=== PATIENT | female | born 2000 | race Caucasian/White ===

== ENCOUNTER → 2018-07-08 | Outpatient (REF) ==
--- NOTE | 2018-07-08 12:36 | Diagnostic Imaging Report ---
EXAMINATION: Right foot at 12:09 p.m. INDICATION: Injury, foot pain. FINDINGS: Three views were obtained. There are no prior studies available for comparison. There is no fracture, dislocation, or acute bony abnormality evident. The Lisfranc joint is well maintained. The soft tissues are unremarkable. IMPRESSION: There is no evidence for an acute bony abnormality. Dictated by: Dictated on workstation # [id number]
== END | disposition home or self-care (01) ==
LOC: RAD 11:34 → MERGE 11:34
PROVIDERS: ATTEND Nurse Practitioner Family
CPT/HCPCS: 73630

== ENCOUNTER 2018-07-16 12:59 | Emergency (ER) | payer SELFPAY ==
[~2018-07-16] VITALS: Ht 152.4 cm; Wt 52.2 kg
[2018-07-16] MEDS ORDERED: NS IV 1000 ML 1,000 ML IV ONE (13:18)
[2018-07-16 13:21] LABS: BILIRUBIN,URINE NEGATIVE (NEGATIVE); CLARITY,URINE CLEAR; COLOR,URINE YELLOW; GLUCOSE, URINE (UA) NEGATIVE (NEGATIVE); KETONES,URINE NEGATIVE (NEGATIVE); LEUKOCYTE ESTERASE ,URINE 1+ (NEGATIVE); NITRITE,URINE NEGATIVE (NEGATIVE); PH,URINE 7 (5-9); PROTEIN,URINE 2+ (NEGATIVE); UROBILINOGEN,URINE 1 MG/DL (NORMAL)
[2018-07-16 13:31] LABS: BASOPHILS % (AUTO) 0 % (0-10); EOSINOPHILS # (AUTO) 0.1 10^3/uL (0.0-0.3); EOSINOPHILS % (AUTO) 1 % (0-10); HEMATOCRIT 37 % (35-52); HEMOGLOBIN 13.3 G/DL (11.5-16.0); LYMPHOCYTES # (AUTO) 2.5 X 10^3 (1.0-4.0); LYMPHOCYTES % (AUTO) 39 % (12-44); MEAN CORPUSCULAR HEMOGLOBIN 30 PG (25-34); MEAN CORPUSCULAR HGB CONC 36 G/DL (32-36); MEAN CORPUSCULAR VOLUME 83 FL (80-99); MEAN PLATELET VOLUME 9.4 FL (7.4-10.4); MONOCYTES # (AUTO) 0.5 X 10^3 (0.0-1.0); MONOCYTES % (AUTO) 8 % (0-12); NEUTROPHILS # (AUTO) 3.4 X 10^3 (1.8-7.8); NEUTROPHILS % (AUTO) 53 % (42-75); PLATELET COUNT 247 10^3/uL (130-400); RED CELL DISTRIBUTION WIDTH 12.2 % (10.0-14.5); WHITE BLOOD COUNT 6.5 10^3/uL (4.3-11.0)
[2018-07-16 13:38] LABS: AMPHETAMINE SCREEN, URINE NEGATIVE (NEGATIVE); BARBITURATE SCREEN URINE NEGATIVE (NEGATIVE); BENZODIAZEPINES SCREEN URINE NEGATIVE (NEGATIVE); CANNABINOID SCREEN, URINE NEGATIVE (NEGATIVE); COCAINE SCREEN URINE NEGATIVE (NEGATIVE); METHAMPHETAMINE SCREEN URINE S NEGATIVE (NEGATIVE); OPIATE SCREEN URINE NEGATIVE (NEGATIVE); TRICYCLIC ANTIDEPRESSANTS SCRE NEGATIVE (NEGATIVE)
[2018-07-16 13:39] LABS: METHADONE STAT NEGATIVE (NEGATIVE); OXYCODONE STAT NEGATIVE (NEGATIVE); PROPOXYPHENE STAT NEGATIVE (NEGATIVE)
[2018-07-16 13:42] LABS: BACTERIA,URINE MODERATE /HPF; WBC,URINE RARE /HPF
[2018-07-16 13:49] LABS: ALANINE AMINOTRANSFERASE 11 U/L (0-55); ALBUMIN 4.5 GM/DL (3.2-4.5); ALKALINE PHOSPHATASE 59 U/L (40-136); BILIRUBIN,TOTAL 0.2 MG/DL (0.1-1.0); BUN/CREATININE RATIO 14; CALCIUM 9.4 MG/DL (8.5-10.1); CARBON DIOXIDE 24 MMOL/L (21-32); CHLORIDE 106 MMOL/L (98-107); GFR ESTIMATED > 60; GLUCOSE 132 MG/DL (70-105); POTASSIUM 3.6 MMOL/L (3.6-5.0); SALICYLATE < 5.0 MG/DL (5.0-20.0); SODIUM 138 MMOL/L (135-145); TOTAL PROTEIN 7.4 GM/DL (6.4-8.2)
--- NOTE | 2018-07-16 13:57 | ED General ---
General Chief Complaint: General Problems/Pain Stated Complaint: WEAKNESS Nursing Triage Note: PT STATES GENERAL WEAKNESS AND UPPER ABD PAIN FOR ABOUT A MONTH. STATES SOMETHING LIKE THIS HAPPENED TO HER IN THE PAST BUT THEY WERE UNABLE TO FIND OUT WHAT WAS WRONG. Source of Information: Patient Exam Limitations: No Limitations History of Present Illness Date Seen by Provider: Jul 16, 2018 Time Seen by Provider: 13:20 Initial Comments Here with report of generalized weakness and intermittent for abdominal pain for about a month. She has had some nausea. Denies vomiting. Denies dysuria. Last menstrual period was 06/13. Does not believe that she is . It is a possibility though. Describes more of a weakness and pain and/or nausea. States that she tries to eat to help her head does not seem to help make it go away. States that she sometimes feels like she is given a pass out and that's what she relates to childhood. Timing/Duration: 1 Week, Changing Over Time, Intermittent Severity: Mild, Moderate Associated Systoms: No Chest Pain, No Cough, No Fever/Chills, No Shortness of Air; Weakness Allergies and Home Medications Allergies Coded Allergies: No Known Drug Allergies (Unverified , 07/16/18) Patient Home Medication List Home Medication List Reviewed: Yes Review of Systems Review of Systems Constitutional: see HPI; No chills, No fever EENTM: no symptoms reported Respiratory: no symptoms reported Cardiovascular: No chest pain, No palpitations Gastrointestinal: abdominal pain, nausea; No vomiting Genitourinary: No dysuria : Yes LMP: Jun 13, 2018 Musculoskeletal: no symptoms reported Skin: no symptoms reported Psychiatric/Neurological: No Symptoms Reported; Denies Headache All Other Systems Reviewed Negative Unless Noted: Yes Past Cruxrdb-Bexlcz-Ygxpxd Hx Past Med/Social Hx: Reviewed Nursing Past Med/Soc Hx Patient Social History Alcohol Use: Rarely Uses Recreational Drug Use: No Smoking Status: Current Everyday Smoker Type Used: Cigarettes Recent Foreign Travel: No Contact w/Someone Who Travel: No Recent Infectious Disease Expo: No Recent Hopitalizations: No Seasonal Allergies Seasonal Allergies: No Past Medical History Surgeries: Yes (NASAL) Respiratory: No Cardiac: No Neurological: No Genitourinary: No Gastrointestinal: No Musculoskeletal: No Endocrine: No HEENT: No Cancer: No Psychosocial: No Integumentary: No Family Medical History Reviewed Nursing Family Hx Physical Exam Vital Signs Vital Signs - First Documented 07/16/18 13:12 Temp 97.8 Pulse 67 Resp 18 B/P (MAP) 114/72 O2 Delivery Room Air Capillary Refill : Height, Weight, BMI Height: 5'0" Weight: 115lbs. oz. 52.090422gh; 22.46 BMI Method:Stated General Appearance: No Apparent Distress, WD/WN HEENT: PERRL/EOMI, Pharynx Normal Neck: Non Tender, Supple Respiratory: Lungs Clear, Normal Breath Sounds Cardiovascular: Regular Rate, Rhythm, No Murmur Gastrointestinal: Non Tender, Soft Back: Normal Inspection, No CVA Tenderness, No Vertebral Tenderness Extremity: Normal Range of Motion, Non Tender Neurologic/Psychiatric: Alert, Oriented x3 Skin: Normal Color, Warm/Dry Progress/Results/Core Measures Suspected Sepsis SIRS Temperature:97.8 Pulse: Respiratory Rate: Laboratory Tests 07/16/18 13:26: White Blood Count 6.5 Blood Pressure / Mean: Laboratory Tests 07/16/18 13:26: Creatinine 0.80, Platelet Count 247, Total Bilirubin 0.2 Results/Orders Lab Results Laboratory Tests Test 07/16/18 13:10 07/16/18 13:13 07/16/18 13:26 Range/Units Urine Color YELLOW Urine Clarity CLEAR Urine pH 7 5-9 Urine Specific [place] 1.015 L 1.016-1.022 Urine Protein 2+ H NEGATIVE Urine Glucose (UA) NEGATIVE NEGATIVE Urine Ketones NEGATIVE NEGATIVE Urine Nitrite NEGATIVE NEGATIVE Urine Bilirubin NEGATIVE NEGATIVE Urine Urobilinogen 1 NORMAL MG/DL Urine Leukocyte Esterase 1+ H NEGATIVE Urine RBC (Auto) NEGATIVE NEGATIVE Urine RBC NONE /HPF Urine WBC RARE /HPF Urine Squamous Epithelial Cells 5-10 /HPF Urine Crystals NONE /LPF Urine Bacteria MODERATE H /HPF Urine Casts NONE /LPF Urine Mucus NEGATIVE /LPF Urine Culture Indicated YES Urine Opiates Screen NEGATIVE NEGATIVE Urine Oxycodone Screen NEGATIVE NEGATIVE Urine Methadone Screen NEGATIVE NEGATIVE Urine Propoxyphene Screen NEGATIVE NEGATIVE Urine Barbiturates Screen NEGATIVE NEGATIVE Ur Tricyclic Antidepressants Screen NEGATIVE NEGATIVE Urine Phencyclidine Screen NEGATIVE NEGATIVE Urine Amphetamines Screen NEGATIVE NEGATIVE Urine Methamphetamines Screen NEGATIVE NEGATIVE Urine Benzodiazepines Screen NEGATIVE NEGATIVE Urine Cocaine Screen NEGATIVE NEGATIVE Urine Cannabinoids Screen NEGATIVE NEGATIVE White Blood Count 6.5 4.3-11.0 10^3/uL Red Blood Count 4.40 4.35-5.85 10^6/uL Hemoglobin 13.3 11.5-16.0 G/DL Hematocrit 37 35-52 % Mean Corpuscular Volume 83 80-99 FL Mean Corpuscular Hemoglobin 30 25-34 PG Mean Corpuscular Hemoglobin Concent 36 32-36 G/DL Red Cell Distribution Width 12.2 10.0-14.5 % Platelet Count 247 130-400 10^3/uL Mean Platelet Volume 9.4 7.4-10.4 FL Neutrophils (%) (Auto) 53 42-75 % Lymphocytes (%) (Auto) 39 12-44 % Monocytes (%) (Auto) 8 0-12 % Eosinophils (%) (Auto) 1 0-10 % Basophils (%) (Auto) 0 0-10 % Neutrophils # (Auto) 3.4 1.8-7.8 X 10^3 Lymphocytes # (Auto) 2.5 1.0-4.0 X 10^3 Monocytes # (Auto) 0.5 0.0-1.0 X 10^3 Eosinophils # (Auto) 0.1 0.0-0.3 10^3/uL Basophils # (Auto) 0.0 0.0-0.1 10^3/uL Sodium Level 138 135-145 MMOL/L Potassium Level 3.6 3.6-5.0 MMOL/L Chloride Level 106 98-107 MMOL/L Carbon Dioxide Level 24 21-32 MMOL/L Anion Gap 8 5-14 MMOL/L Blood Urea Nitrogen 11 7-18 MG/DL Creatinine 0.80 0.60-1.30 MG/DL Estimat Glomerular Filtration Rate > 60 BUN/Creatinine Ratio 14 Glucose Level 132 H 70-105 MG/DL Calcium Level 9.4 8.5-10.1 MG/DL Corrected Calcium 9.0 8.5-10.1 MG/DL Total Bilirubin 0.2 0.1-1.0 MG/DL Aspartate Amino Transf (AST/SGOT) 17 5-34 U/L Alanine Aminotransferase (ALT/SGPT) 11 0-55 U/L Alkaline Phosphatase 59 40-136 U/L Total Protein 7.4 6.4-8.2 GM/DL Albumin 4.5 3.2-4.5 GM/DL Thyroid Stimulating Hormone (TSH) 0.96 0.35-4.94 UIU/ML Human Chorionic Gonadotropin, Quant 58 H <5 MIU/ML Serum Test, Qualitative POSITIVE NEGATIVE Salicylates Level < 5.0 L 5.0-20.0 MG/DL Acetaminophen Level < 10 L 10-30 UG/ML Serum Alcohol < 10 <10 MG/DL My Orders Orders - NAINA WOLF MD Ed Iv/Invasive Line Start (07/16/18 13:18) Ns Iv 1000 Ml (Sodium Chloride 0.9%) (07/16/18 13:18) Acetaminophen (07/16/18 13:19) Salicylate (07/16/18 13:19) Thyroid Stimulating Hormone (07/16/18 13:19) Medications Given in ED Current Medications Medications Dose Ordered Sig/Abhishek Route Start Time Stop Time Status Last Admin Dose Admin Sodium Chloride 1,000 ml @ 0 mls/hr Q0M ONCE IV 07/16/18 13:18 07/16/18 13:20 DC 07/16/18 13:36 1,000 MLS/HR Vital Signs/I&O 07/16/18 13:12 Temp 97.8 Pulse 67 Resp 18 B/P (MAP) 114/72 O2 Delivery Room Air Capillary Refill : Progress Note : Progress Note Seen and evaluated. IV, labs, UA, normal saline 1 L bolus. UCG is positive. We will check Quant level. I did inform patient of the positive test. Monitor patient. 1505: Patient definitely by hCG quantitative level although early. Feels better currently. Discharged home with return precautions. Patient verbalize understanding instructions and agreement with plan. We will await culture for urine to see if she needs to be treated at that time. Patient informed and understands. Departure Impression Primary Impression: Positive test Additional Impressions: Nausea Acute epigastric pain Disposition: 01 HOME, SELF-CARE Condition: Improved Departure-Patient Inst. Decision time for Depature: 15:09 Referrals: NO,LOCAL PHYSICIAN (PCP) Primary Care Physician RICHARD BROWNE DENNIS G MD KOEHN,DONI BRADEN MD, DO [facility] Patient Instructions: Acute Abdomen (Belly Pain), Adult (DC), Tests, Nausea and Vomiting, Adult (DC) Add. Discharge Instructions: All discharge instructions reviewed with patient and/or family. Voiced understanding. Light diet for the next several days and then advance as tolerated. Follow-up with your doctor or one of the doctors listed for recheck and further evaluation and to initiate obstetric care. Plenty of fluids. Return for worse pain, fever, vomiting, weakness, breathing problems or other concerns as needed. If your urine culture is positive, you will be called and prescribed antibiotic at that time. NAINA WOLF MD Jul 16, 2018 13:57
[2018-07-16 14:04] LABS: ACETAMINOPHEN < 10 UG/ML (10-30)
== END 2018-07-16 15:19 | disposition home or self-care (01) ==
LOC: ER 13:01
DX: R11.0 Nausea (principal); R10.13 Epigastric pain; F17.210 Nicotine dependence, cigarettes, uncomplicated; Z32.01 Encounter for pregnancy test, result positive
CPT/HCPCS: 36415; 80053; 80306; 80320; 80329; 81000; 84443; 84702; 84703; 85025; 87088

== ENCOUNTER 2018-08-14 07:55 | Emergency (ER) | payer SELFPAY ==
[~2018-08-14] VITALS: Ht 152.4 cm; Wt 49.9 kg
[2018-08-14 08:46] LABS: BILIRUBIN,URINE NEGATIVE (NEGATIVE); CLARITY,URINE CLEAR; COLOR,URINE YELLOW; GLUCOSE, URINE (UA) NEGATIVE (NEGATIVE); KETONES,URINE NEGATIVE (NEGATIVE); LEUKOCYTE ESTERASE ,URINE 3+ (NEGATIVE); NITRITE,URINE NEGATIVE (NEGATIVE); PH,URINE 6.5 (5-9); PROTEIN,URINE NEGATIVE (NEGATIVE); UROBILINOGEN,URINE NORMAL (NORMAL)
[2018-08-14 08:47] LABS: BASOPHILS % (AUTO) 0 % (0-10); EOSINOPHILS % (AUTO) 1 % (0-10); HEMATOCRIT 36 % (35-52); HEMOGLOBIN 12.8 G/DL (11.5-16.0); LYMPHOCYTES # (AUTO) 1.3 X 10^3 (1.0-4.0); LYMPHOCYTES % (AUTO) 20 % (12-44); MEAN CORPUSCULAR HEMOGLOBIN 30 PG (25-34); MEAN CORPUSCULAR HGB CONC 35 G/DL (32-36); MEAN CORPUSCULAR VOLUME 84 FL (80-99); MEAN PLATELET VOLUME 9.5 FL (7.4-10.4); MONOCYTES # (AUTO) 0.6 X 10^3 (0.0-1.0); MONOCYTES % (AUTO) 9 % (0-12); NEUTROPHILS # (AUTO) 4.6 X 10^3 (1.8-7.8); NEUTROPHILS % (AUTO) 70 % (42-75); PLATELET COUNT 229 10^3/uL (130-400); RED CELL DISTRIBUTION WIDTH 11.7 % (10.0-14.5); WHITE BLOOD COUNT 6.5 10^3/uL (4.3-11.0)
[2018-08-14 08:54] LABS: BACTERIA,URINE TRACE /HPF
[2018-08-14 09:05] LABS: ALANINE AMINOTRANSFERASE 11 U/L (0-55); ALBUMIN 4.4 GM/DL (3.2-4.5); ALKALINE PHOSPHATASE 46 U/L (40-136); BILIRUBIN,TOTAL 0.3 MG/DL (0.1-1.0); BUN/CREATININE RATIO 11; CALCIUM 9.7 MG/DL (8.5-10.1); CARBON DIOXIDE 20 MMOL/L (21-32); CHLORIDE 106 MMOL/L (98-107); CREATININE SERUM 0.66 MG/DL (0.60-1.30); GFR ESTIMATED > 60; GLUCOSE 93 MG/DL (70-105); POTASSIUM 3.7 MMOL/L (3.6-5.0); SODIUM 137 MMOL/L (135-145); TOTAL PROTEIN 7.1 GM/DL (6.4-8.2)
--- NOTE | 2018-08-14 09:09 | NUR ---
BEDSIDE URINE PREG NOT DONE DR ORDERED HCG QUANT.
--- NOTE | 2018-08-14 09:26 | ED General ---
General Chief Complaint: General Problems/Pain Stated Complaint: WEAKNESS;NAUSEA Nursing Triage Note: AMB TO ROOM REPORTS HAS HAD POS PRE TEST FOR SEVERAL MONTHS HAS BEEN WEAK. HAS NOT HAD ANY FOLLOW UP WITH HER PCP Source of Information: Patient Exam Limitations: No Limitations History of Present Illness Date Seen by Provider: August 14, 2018 Time Seen by Provider: 09:25 Initial Comments The patient is a 17-year-old white female who presents with complaints of nausea and vomiting. She is apparently none for several months that her home test was positive. She has sought no follow-up. She is waiting for her employer health insurance to become active. She is not absolutely clear how far along she may be but she estimates 2 months. This is her second . There has been no vaginal discharge or bleeding. She reports that her first was uneventful. This has been punctuated by nausea and vomiting for the last 10 days to 2 weeks. Allergies and Home Medications Allergies Coded Allergies: No Known Drug Allergies (Unverified , 07/16/18) Home Medications No Active Prescriptions or Reported Meds Patient Home Medication List Home Medication List Reviewed: Yes Review of Systems Review of Systems Constitutional: see HPI EENTM: no symptoms reported Respiratory: no symptoms reported Cardiovascular: no symptoms reported Gastrointestinal: see HPI Genitourinary: no symptoms reported LMP: Jun 13, 2018 Musculoskeletal: no symptoms reported Skin: no symptoms reported Psychiatric/Neurological: No Symptoms Reported Hematologic/Lymphatic: No Symptoms Reported Immunological/Allergic: no symptoms reported Past Qxahstx-Sxpbds-Aldogt Hx Patient Social History Type Used: Cigarettes Recent Foreign Travel: No Contact w/Someone Who Travel: No Recent Infectious Disease Expo: No Recent Hopitalizations: No Seasonal Allergies Seasonal Allergies: No Past Medical History Surgeries: Yes (NASAL) Respiratory: No Cardiac: No Neurological: No Hx : 2 Hx Para: 1 Genitourinary: No Gastrointestinal: No Musculoskeletal: No Endocrine: No HEENT: No Cancer: No Psychosocial: No Integumentary: No Physical Exam Vital Signs Vital Signs - First Documented 08/14/18 08:09 Temp 96.2 Pulse 82 Resp 18 B/P (MAP) 117/56 Pulse Ox 18 Capillary Refill : Height, Weight, BMI Height: 5'0" Weight: 110lbs. oz. 49.399859nm; 22.46 BMI Method:Stated General Appearance: No Apparent Distress, WD/WN Eyes: Bilateral Eye Normal Inspection HEENT: Normal ENT Inspection Neck: Normal Inspection Respiratory: Chest Non Tender Cardiovascular: Regular Rate, Rhythm, No Edema, No Gallop, No JVD, No Murmur, Normal Peripheral Pulses Gastrointestinal: Normal Bowel Sounds, Non Tender Progress/Results/Core Measures Suspected Sepsis SIRS Temperature:96.2 Pulse: Respiratory Rate: Laboratory Tests 08/14/18 08:40: White Blood Count 6.5 Blood Pressure / Mean: Laboratory Tests 08/14/18 08:40: Creatinine 0.66, Platelet Count 229, Total Bilirubin 0.3 Results/Orders Lab Results Laboratory Tests Test 08/14/18 08:30 08/14/18 08:40 Range/Units Urine Color YELLOW Urine Clarity CLEAR Urine pH 6.5 5-9 Urine Specific [place] 1.005 L 1.016-1.022 Urine Protein NEGATIVE NEGATIVE Urine Glucose (UA) NEGATIVE NEGATIVE Urine Ketones NEGATIVE NEGATIVE Urine Nitrite NEGATIVE NEGATIVE Urine Bilirubin NEGATIVE NEGATIVE Urine Urobilinogen NORMAL NORMAL MG/DL Urine Leukocyte Esterase 3+ H NEGATIVE Urine RBC (Auto) NEGATIVE NEGATIVE Urine RBC NONE /HPF Urine WBC 10-25 H /HPF Urine Squamous Epithelial Cells 10-25 H /HPF Urine Crystals NONE /LPF Urine Bacteria TRACE /HPF Urine Casts NONE /LPF Urine Mucus NEGATIVE /LPF Urine Culture Indicated YES White Blood Count 6.5 4.3-11.0 10^3/uL Red Blood Count 4.32 L 4.35-5.85 10^6/uL Hemoglobin 12.8 11.5-16.0 G/DL Hematocrit 36 35-52 % Mean Corpuscular Volume 84 80-99 FL Mean Corpuscular Hemoglobin 30 25-34 PG Mean Corpuscular Hemoglobin Concent 35 32-36 G/DL Red Cell Distribution Width 11.7 10.0-14.5 % Platelet Count 229 130-400 10^3/uL Mean Platelet Volume 9.5 7.4-10.4 FL Neutrophils (%) (Auto) 70 42-75 % Lymphocytes (%) (Auto) 20 12-44 % Monocytes (%) (Auto) 9 0-12 % Eosinophils (%) (Auto) 1 0-10 % Basophils (%) (Auto) 0 0-10 % Neutrophils # (Auto) 4.6 1.8-7.8 X 10^3 Lymphocytes # (Auto) 1.3 1.0-4.0 X 10^3 Monocytes # (Auto) 0.6 0.0-1.0 X 10^3 Eosinophils # (Auto) 0.0 0.0-0.3 10^3/uL Basophils # (Auto) 0.0 0.0-0.1 10^3/uL Sodium Level 137 135-145 MMOL/L Potassium Level 3.7 3.6-5.0 MMOL/L Chloride Level 106 98-107 MMOL/L Carbon Dioxide Level 20 L 21-32 MMOL/L Anion Gap 11 5-14 MMOL/L Blood Urea Nitrogen 7 7-18 MG/DL Creatinine 0.66 0.60-1.30 MG/DL Estimat Glomerular Filtration Rate > 60 BUN/Creatinine Ratio 11 Glucose Level 93 70-105 MG/DL Calcium Level 9.7 8.5-10.1 MG/DL Corrected Calcium 9.4 8.5-10.1 MG/DL Total Bilirubin 0.3 0.1-1.0 MG/DL Aspartate Amino Transf (AST/SGOT) 13 5-34 U/L Alanine Aminotransferase (ALT/SGPT) 11 0-55 U/L Alkaline Phosphatase 46 40-136 U/L Total Protein 7.1 6.4-8.2 GM/DL Albumin 4.4 3.2-4.5 GM/DL Human Chorionic Gonadotropin, Quant [id number] H <5 MIU/ML My Orders Orders - JESSICA BARTON MD Urine Bedside (08/14/18 08:31) Cbc With Automated Diff (08/14/18 08:31) Comprehensive Metabolic Panel (08/14/18 08:31) Ua Culture If Indicated (08/14/18 08:31) Hcg,Quantitative (08/14/18 08:59) Urine Culture (08/14/18 08:30) Vital Signs/I&O 08/14/18 08:09 Temp 96.2 Pulse 82 Resp 18 B/P (MAP) 117/56 Pulse Ox 18 Capillary Refill : Departure Impression Primary Impression: Nausea/vomiting in Additional Impression: Urinary tract infection affecting care of mother in first trimester, antepartum Disposition: 01 HOME, SELF-CARE Condition: Stable/Unchanged Departure-Patient Inst. Decision time for Depature: 10:10 Referrals: NO,LOCAL PHYSICIAN (PCP) Primary Care Physician Patient Instructions: Urinary Tract Infection, Adult (DC), Hyperemesis Gravidarum Add. Discharge Instructions: All discharge instructions reviewed with patient and/or family. Voiced understanding. Use Zofran as needed for nausea and vomiting control. From the list provided you arrange a provider for future needs. Macrodantin as prescribed for urinary tract infection Scripts Ondansetron (Ondansetron Odt) 8 Mg Tab.rapdis 8 MG PO every 4 hours, #30 TAB Prov: JESSICA BARTON MD 08/14/18 Nitrofurantoin Macrocrystal (Macrodantin) 100 Mg Capsule 100 MG PO twice a day, #14 CAP Prov: JESSICA BARTON MD 08/14/18 JESSICA BARTON MD August 14, 2018 09:26
[2018-08-14] MEDS ORDERED: NITR-68 PO (10:12)
[2018-08-14] MEDS ORDERED: ONDA8TAB13 PO (10:12)
== END 2018-08-14 10:25 | disposition home or self-care (01) ==
LOC: EDUNIT# 07:55 → ER 07:56
DX: O23.41 Unspecified infection of urinary tract in pregnancy, first trimester (principal); Z3A.00 Weeks of gestation of pregnancy not specified
CPT/HCPCS: 36415; 80053; 81000; 84702; 85025; 87088

== ENCOUNTER 2018-09-12 09:04 | Emergency (ER) | payer MEDICAID, OTHER ==
[~2018-09-12] VITALS: Ht 152.4 cm; Wt 50.3 kg
[~2018-09-12 09:04] MED LIST: NITR-68 PO; ONDA8TAB13 PO
--- NOTE | 2018-09-12 09:22 | ED Syncope ---
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 She has not actually had a syncopal episode. She denies dysuria discharge nausea vomiting diarrhea cough shortness of breath chest pain. She is having some pain up around her bilateral ribs. She is a at 13 weeks and 0 days by last menstrual period of June 13. She follows with Dr. Bauer. She called Dr. Bauer's office today to be seen but her doctor was unavailable so she came here. First delivered prematurely at 34 weeks but did not spend any time in the NICU; did well. No problems with her thus far except for she is noted to have hypotension per her report. Allergies and Home Medications Allergies Coded Allergies: No Known Drug Allergies (Unverified , 07/16/18) Home Medications Nitrofurantoin Macrocrystal 100 Mg Capsule, 100 MG PO twice a day Prescribed by: JESSICA BARTON on 08/14/18 1012 Ondansetron 8 Mg Tab.rapdis, 8 MG PO every 4 hours Prescribed by: JESSICA BARTON on 08/14/18 1012 Patient Home Medication List Home Medication List Reviewed: Yes Review of Systems Constitutional: chills; No fever, No malaise EENTM: No ear discharge, No ear pain Respiratory: No cough, No phlegm, No short of breath Cardiovascular: No chest pain, No palpitations Gastrointestinal: abdominal pain (bilateral under the ribs); No constipation, No diarrhea, No nausea Genitourinary: discharge (increased, white, non-malodorous); No dysuria : Yes LMP: Jun 13, 2018 Control/STD Prophylaxis: None Past Txgdadk-Vwgshf-Fxtbtr Hx Patient Social History Alcohol Use: Denies Use Recreational Drug Use: No Smoking Status: Former Smoker Type Used: Cigarettes Former Smoker, Quit: August 07, 2018 Recent Foreign Travel: No Contact w/Someone Who Travel: No Recent Hopitalizations: No Seasonal Allergies Seasonal Allergies: No Past Medical History Surgeries: Yes (NASAL) Respiratory: No Cardiac: No Neurological: No Hx : 2 Hx Para: 1 Hx Total # of Abortions (Sp): 0 Genitourinary: No Gastrointestinal: No Musculoskeletal: No Endocrine: No HEENT: No Cancer: No Psychosocial: No Integumentary: No Physical Exam Vital Signs Vital Signs - First Documented 09/12/18 09:19 Temp 97.2 Pulse 88 Resp 20 B/P (MAP) 145/92 Capillary Refill : Height, Weight, BMI Height: 5'0" Weight: 110lbs. oz. 49.222117hn; 22.46 BMI Method:Stated General Appearance: No Apparent Distress, WD/WN HEENT: PERRL/EOMI, TMs Normal, Normal ENT Inspection; No Moist Mucous Membranes Neck: Full Range of Motion, Normal Inspection, Non Tender, Supple Cardiovascular: Regular Rate, Rhythm, No Edema, Normal Peripheral Pulses Respiratory: Chest Non Tender, Lungs Clear, Normal Breath Sounds, No Accessory Muscle Use, No Respiratory Distress Gastrointestinal: Normal Bowel Sounds, Soft, Tenderness (mild right lower quadrant without rebound), Other (negative for psoas sign or other mesenteric signs.) Extremities: Normal Capillary Refill, Normal Inspection, Non Tender Neurologic/Psychiatric: Alert, Oriented x3, No Motor/Sensory Deficits, Normal Mood/Affect Cranial Nerves: Normal Hearing, Normal Speech, PERRL Motor/Sensory: No Motor Deficit, No Sensory Deficit Skin: Normal Color, Warm/Dry Progress/Results/Core Measures Results/Orders Lab Results Laboratory Tests Test 09/12/18 09:34 Range/Units White Blood Count 5.5 4.3-11.0 10^3/uL Red Blood Count 4.12 L 4.35-5.85 10^6/uL Hemoglobin 12.4 11.5-16.0 G/DL Hematocrit 34 L 35-52 % Mean Corpuscular Volume 83 80-99 FL Mean Corpuscular Hemoglobin 30 25-34 PG Mean Corpuscular Hemoglobin Concent 36 32-36 G/DL Red Cell Distribution Width 12.8 10.0-14.5 % Platelet Count 230 130-400 10^3/uL Mean Platelet Volume 9.3 7.4-10.4 FL Neutrophils (%) (Auto) 70 42-75 % Lymphocytes (%) (Auto) 21 12-44 % Monocytes (%) (Auto) 8 0-12 % Eosinophils (%) (Auto) 1 0-10 % Basophils (%) (Auto) 0 0-10 % Neutrophils # (Auto) 3.9 1.8-7.8 X 10^3 Lymphocytes # (Auto) 1.2 1.0-4.0 X 10^3 Monocytes # (Auto) 0.4 0.0-1.0 X 10^3 Eosinophils # (Auto) 0.0 0.0-0.3 10^3/uL Basophils # (Auto) 0.0 0.0-0.1 10^3/uL Prothrombin Time 14.4 12.2-14.7 SEC INR Comment 1.1 0.8-1.4 Activated Partial Thromboplast Time 29 24-35 SEC Urine Color YELLOW Urine Clarity SLIGHTLY CLOUDY Urine pH 7 5-9 Urine Specific Valentines 1.010 L 1.016-1.022 Urine Protein NEGATIVE NEGATIVE Urine Glucose (UA) NEGATIVE NEGATIVE Urine Ketones NEGATIVE NEGATIVE Urine Nitrite NEGATIVE NEGATIVE Urine Bilirubin NEGATIVE NEGATIVE Urine Urobilinogen NORMAL NORMAL MG/DL Urine Leukocyte Esterase 1+ H NEGATIVE Urine RBC (Auto) NEGATIVE NEGATIVE Urine RBC NONE /HPF Urine WBC 2-5 /HPF Urine Squamous Epithelial Cells 10-25 H /HPF Urine Crystals NONE /LPF Urine Bacteria FEW H /HPF Urine Casts NONE /LPF Urine Mucus SMALL H /LPF Urine Culture Indicated NO Sodium Level 133 L 135-145 MMOL/L Potassium Level 3.7 3.6-5.0 MMOL/L Chloride Level 104 98-107 MMOL/L Carbon Dioxide Level 23 21-32 MMOL/L Anion Gap 6 5-14 MMOL/L Blood Urea Nitrogen 7 7-18 MG/DL Creatinine 0.65 0.60-1.30 MG/DL Estimat Glomerular Filtration Rate > 60 BUN/Creatinine Ratio 11 Glucose Level 75 70-105 MG/DL Calcium Level 9.2 8.5-10.1 MG/DL Corrected Calcium 9.0 8.5-10.1 MG/DL Total Bilirubin 0.3 0.1-1.0 MG/DL Aspartate Amino Transf (AST/SGOT) 14 5-34 U/L Alanine Aminotransferase (ALT/SGPT) 8 0-55 U/L Alkaline Phosphatase 44 40-136 U/L C-Reactive Protein High Sensitivity 0.30 0.00-0.50 MG/DL Total Protein 7.1 6.4-8.2 GM/DL Albumin 4.2 3.2-4.5 GM/DL My Orders Orders - [facility] Ua Culture If Indicated (09/12/18 09:07) Urine Bedside (09/12/18 09:07) Ekg Tracing (09/12/18 09:19) Continuous Ekg Monitoring (09/12/18 09:19) Orthostatic Vital Signs (Adult (09/12/18 09:19) Cbc With Automated Diff (09/12/18 09:19) Comprehensive Metabolic Panel (09/12/18 09:19) Hs C Reactive Protein (09/12/18 09:19) Protime With Inr (09/12/18:19) Partial Thromboplastin Time (09/12/18 09:19) Vital Signs/I&O 09/12/18 09/12/18 09:19 09:40 Temp 97.2 Pulse 88 79 89 99 Resp 20 B/P (MAP) 145/92 122/73 (89) 119/72 (88) 118/68 (85) Progress Progress Note #1: Time: 09:48 Progress Note Orthostatic vital signs are normal. We obtained an EKG looking for potential dysrhythmia but it also was negative. We'll obtain basic labs including urinalysis looking for signs of infection, anemia or dehydration. Progress Note #2: Time: 11:23 Progress Note Nothing acute seen in her blood work. She has no pain. We've encouraged to use Tylenol if her rib pain comes back. Given her conservative expectations in counseling for . Initial ECG Impression Date: Sep 12, 2018 Initial ECG Impression Time: 09:38 Initial ECG Rate: 79 Initial ECG Rhythm: Normal Sinus Initial ECG Intervals: Normal Initial ECG Impression: Normal Initial ECG Comparisson: No Previous ECG Available Comment No dysrhythmia, ST elevation or depression. Departure Impression Primary Impression: Rib pain Additional Impression: and not yet delivered in second trimester Disposition: 01 HOME, SELF-CARE Condition: Stable Departure-Patient Inst. Decision time for Depature: 11:25 Referrals: NO,LOCAL PHYSICIAN (PCP) Primary Care Physician DONI BAUER DO (Family) Primary Care Physician Patient Instructions: Activity During Add. Discharge Instructions: Drink water. Tylenol 1000 g every 8 hours as needed for discomfort. 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 All discharge instructions reviewed with patient and/or family. Voiced understanding. Work/School Note: Work Release Form Date Seen in the Emergency Department: Sep 12, 2018 Return to Work: Sep 14, 2018 Restrictions: No Restrictions [facility] Sep 12, 2018 09:22
--- OUTSIDE RECORDS SUMMARY | 2018-09-12 09:22 | XMS REPORT | Continuity of Care Document ---
Author Organization Unknown Address Unknown Allergies Active Description Code Type Severity Reaction Onset Reported/Identified Relationship to Patient Clinical Status Yes No Known Drug Allergies [id number] Drug Allergy Unknown N/A 07/16/2018 Medications There is no data. Problems Date Dx Coded Attending Type Code Diagnosis Diagnosed By 07/16/2018 NAINA WOLF MD Ot F17.210 NICOTINE DEPENDENCE, CIGARETTES, UNCOMPL 07/16/2018 NAINA WOLF MD Ot R10.13 EPIGASTRIC PAIN 07/16/2018 NAINA WOLF MD Ot R11.0 NAUSEA 07/16/2018 NAINA WOLF MD Ot R53.1 WEAKNESS 07/16/2018 NAINA WOLF MD Ot Z32.01 ENCOUNTER FOR TEST, RESULT POS 07/18/2018 NAINA WOLF MD Ot F17.210 NICOTINE DEPENDENCE, CIGARETTES, UNCOMPL 07/18/2018 NAINA WOLF MD Ot R10.13 EPIGASTRIC PAIN 07/18/2018 NAINA WOLF MD Ot R11.0 NAUSEA 07/18/2018 NAINA WOLF MD Ot R53.1 WEAKNESS 07/18/2018 NAINA WOLF MD Ot Z32.01 ENCOUNTER FOR TEST, RESULT POS 07/22/2018 NAINA WOLF MD Ot F17.210 NICOTINE DEPENDENCE, CIGARETTES, UNCOMPL 07/22/2018 NAINA WOLF MD Ot R10.13 EPIGASTRIC PAIN 07/22/2018 NAINA WOLF MD Ot R11.0 NAUSEA 07/22/2018 NAINA WOLF MD Ot R53.1 WEAKNESS 07/22/2018 NAINA WOLF MD Ot Z32.01 ENCOUNTER FOR TEST, RESULT POS 08/18/2018 JESSICA BARTON MD Ot O23.41 UNSP INFCT OF URINARY TRACT IN 08/18/2018 JESSICA BARTON MD Ot R11.2 NAUSEA WITH VOMITING, UNSPECIFIED 08/18/2018 JESSICA BARTON MD Ot Z3A.00 WEEKS OF GESTATION OF NOT SPEC 08/20/2018 JESSICA BARTON MD Ot O23.41 UNSP INFCT OF URINARY TRACT IN 08/20/2018 JESSICA BARTON MD Ot R11.2 NAUSEA WITH VOMITING, UNSPECIFIED 08/20/2018 JESSICA BARTON MD Ot Z3A.00 WEEKS OF GESTATION OF NOT SPEC Procedures There is no data. Results Test Result Range Complete urinalysis with reflex to culture - 07/16/18 13:10 Urine color determination YELLOW NRG Urine clarity determination CLEAR NRG Urine pH measurement by test strip 7 5-9 Specific gravity of urine by test strip 1.015 1.016-1.022 Urine protein assay by test strip, semi-quantitative 2+ NEGATIVE Urine glucose detection by automated test strip NEGATIVE NEGATIVE Erythrocytes detection in urine sediment by light microscopy NEGATIVE NEGATIVE Urine ketones detection by automated test strip NEGATIVE NEGATIVE Urine nitrite detection by test strip NEGATIVE NEGATIVE Urine total bilirubin detection by test strip NEGATIVE NEGATIVE Urine urobilinogen measurement by automated test strip (mass/volume) 1 mg/dL NORMAL Urine leukocyte esterase detection by dipstick 1+ NEGATIVE Automated urine sediment erythrocyte count by microscopy (number/high power field) NONE NRG Automated urine sediment leukocyte count by microscopy (number/high power field) RARE NRG Bacteria detection in urine sediment by light microscopy MODERATE NRG Squamous epithelial cells detection in urine sediment by light microscopy 5-10 NRG Crystals detection in urine sediment by light microscopy NONE NRG Casts detection in urine sediment by light microscopy NONE NRG Mucus detection in urine sediment by light microscopy NEGATIVE NRG Complete urinalysis with reflex to culture YES NRG Bacterial urine culture - 07/16/18 13:10 Bacterial urine culture NG NRG Urine drug screening test - 07/16/18 13:13 Urine phencyclidine detection by screening method NEGATIVE NEGATIVE Urine benzodiazepines detection by screening method NEGATIVE NEGATIVE Urine cocaine detection NEGATIVE NEGATIVE Urine amphetamines detection by screening method NEGATIVE NEGATIVE Urine methamphetamine detection by screening method NEGATIVE NEGATIVE Urine cannabinoids detection by screening method NEGATIVE NEGATIVE Urine opiates detection by screening method NEGATIVE NEGATIVE Urine barbiturates detection NEGATIVE NEGATIVE Screening urine tricyclic antidepressants detection NEGATIVE NEGATIVE Urine methadone detection by screening method NEGATIVE NEGATIVE Urine oxycodone detection NEGATIVE NEGATIVE Urine propoxyphene detection NEGATIVE NEGATIVE Complete blood count (CBC) with automated white blood cell (WBC) differential - 07/16/18 13:26 Blood leukocytes automated count (number/volume) 6.5 10*3/uL 4.3-11.0 Blood erythrocytes automated count (number/volume) 4.40 10*6/uL 4.35-5.85 Venous blood hemoglobin measurement (mass/volume) 13.3 g/dL 11.5-16.0 Blood hematocrit (volume fraction) 37 % 35-52 Automated erythrocyte mean corpuscular volume 83 [foz_us] 80-99 Automated erythrocyte mean corpuscular hemoglobin (mass per erythrocyte) 30 pg 25-34 Automated erythrocyte mean corpuscular hemoglobin concentration measurement (mass/volume) 36 g/dL 32-36 Automated erythrocyte distribution width ratio 12.2 % 10.0- 14.5 Automated blood platelet count (count/volume) 247 10*3/uL 130-400 Automated blood platelet mean volume measurement 9.4 [foz_us] 7.4-10.4 Automated blood neutrophils/100 leukocytes 53 % 42-75 Automated blood lymphocytes/100 leukocytes 39 % 12-44 Blood monocytes/100 leukocytes 8 % 0-12 Automated blood eosinophils/100 leukocytes 1 % 0-10 Automated blood basophils/100 leukocytes 0 % 0-10 Blood neutrophils automated count (number/volume) 3.4 10*3 1.8-7.8 Blood lymphocytes automated count (number/volume) 2.5 10*3 1.0-4.0 Blood monocytes automated count (number/volume) 0.5 10*3 0.0- 1.0 Automated eosinophil count 0.1 10*3/uL 0.0-0.3 Automated blood basophil count (count/volume) 0.0 10*3/uL 0.0-0.1 Serum or plasma choriogonadotropin ( test) detection - 07/16/18 13:26 Serum or plasma choriogonadotropin ( test) detection POSITIVE NEGATIVE Comprehensive metabolic panel - 07/16/18 13:26 Serum or plasma sodium measurement (moles/volume) 138 mmol/L 135-145 Serum or plasma potassium measurement (moles/volume) 3.6 mmol/L 3.6-5.0 Serum or plasma chloride measurement (moles/volume) 106 mmol/L 98-107 Carbon dioxide 24 mmol/L 21-32 Serum or plasma anion gap determination (moles/volume) 8 mmol/L 5-14 Serum or plasma urea nitrogen measurement (mass/volume) 11 mg/dL 7-18 Serum or plasma creatinine measurement (mass/volume) 0.80 mg/dL 0.60-1.30 Serum or plasma urea nitrogen/creatinine mass ratio 14 NRG Serum or plasma creatinine measurement with calculation of estimated glomerular filtration rate > NRG Serum or plasma glucose measurement (mass/volume) 132 mg/dL 70-105 Serum or plasma calcium measurement (mass/volume) 9.4 mg/dL 8.5-10.1 Serum or plasma total bilirubin measurement (mass/volume) 0.2 mg/dL 0.1-1.0 Serum or plasma alkaline phosphatase measurement (enzymatic activity/volume) 59 U/L 40-136 Serum or plasma aspartate aminotransferase measurement (enzymatic activity/volume) 17 U/L 5-34 Serum or plasma alanine aminotransferase measurement (enzymatic activity/volume) 11 U/L 0-55 Serum or plasma protein measurement (mass/volume) 7.4 g/dL 6.4-8.2 Serum or plasma albumin measurement (mass/volume) 4.5 g/dL 3.2-4.5 CALCIUM CORRECTED 9.0 mg/dL 8.5-10.1 THYROID STIMULATING HORMONE - 07/16/18 13:26 THYROID STIMULATING HORMONE 0.96 u[iU]/mL 0.35-4.94 Serum or plasma choriogonadotropin measurement (units/volume) - 07/16/18 13:26 Serum or plasma choriogonadotropin measurement (units/volume) 58 m[iU]/mL <5 Serum or plasma salicylates measurement (mass/volume) - 07/16/18 13:26 Serum or plasma salicylates measurement (mass/volume) < mg/dL 5.0-20.0 Serum or plasma acetaminophen measurement (mass/volume) - 07/16/18 13:26 Serum or plasma acetaminophen measurement (mass/volume) < ug/mL 10-30 Serum or plasma ethanol measurement (mass/volume) - 07/16/18 13:26 Serum or plasma ethanol measurement (mass/volume) < mg/dL <10 Complete urinalysis with reflex to culture - 08/14/18 08:30 Urine color determination YELLOW NRG Urine clarity determination CLEAR NRG Urine pH measurement by test strip 6.5 5-9 Specific gravity of urine by test strip 1.005 1.016-1.022 Urine protein assay by test strip, semi-quantitative NEGATIVE NEGATIVE Urine glucose detection by automated test strip NEGATIVE NEGATIVE Erythrocytes detection in urine sediment by light microscopy NEGATIVE NEGATIVE Urine ketones detection by automated test strip NEGATIVE NEGATIVE Urine nitrite detection by test strip NEGATIVE NEGATIVE Urine total bilirubin detection by test strip NEGATIVE NEGATIVE Urine urobilinogen measurement by automated test strip (mass/volume) NORMAL NORMAL Urine leukocyte esterase detection by dipstick 3+ NEGATIVE Automated urine sediment erythrocyte count by microscopy (number/high power field) NONE NRG Automated urine sediment leukocyte count by microscopy (number/high power field) [HPF] NRG Bacteria detection in urine sediment by light microscopy TRACE NRG Squamous epithelial cells detection in urine sediment by light microscopy 10-25 NRG Crystals detection in urine sediment by light microscopy NONE NRG Casts detection in urine sediment by light microscopy NONE NRG Mucus detection in urine sediment by light microscopy NEGATIVE NRG Complete urinalysis with reflex to culture YES NRG Bacterial urine culture - 08/14/18 08:30 Bacterial urine culture NG NRG Complete blood count (CBC) with automated white blood cell (WBC) differential - 08/14/18 08:40 Blood leukocytes automated count (number/volume) 6.5 10*3/uL 4.3-11.0 Blood erythrocytes automated count (number/volume) 4.32 10*6/uL 4.35-5.85 Venous blood hemoglobin measurement (mass/volume) 12.8 g/dL 11.5-16.0 Blood hematocrit (volume fraction) 36 % 35-52 Automated erythrocyte mean corpuscular volume 84 [foz_us] 80-99 Automated erythrocyte mean corpuscular hemoglobin (mass per erythrocyte) 30 pg 25-34 Automated erythrocyte mean corpuscular hemoglobin concentration measurement (mass/volume) 35 g/dL 32-36 Automated erythrocyte distribution width ratio 11.7 % 10.0- 14.5 Automated blood platelet count (count/volume) 229 10*3/uL 130-400 Automated blood platelet mean volume measurement 9.5 [foz_us] 7.4-10.4 Automated blood neutrophils/100 leukocytes 70 % 42-75 Automated blood lymphocytes/100 leukocytes 20 % 12-44 Blood monocytes/100 leukocytes 9 % 0-12 Automated blood eosinophils/100 leukocytes 1 % 0-10 Automated blood basophils/100 leukocytes 0 % 0-10 Blood neutrophils automated count (number/volume) 4.6 10*3 1.8-7.8 Blood lymphocytes automated count (number/volume) 1.3 10*3 1.0-4.0 Blood monocytes automated count (number/volume) 0.6 10*3 0.0- 1.0 Automated eosinophil count 0.0 10*3/uL 0.0-0.3 Automated blood basophil count (count/volume) 0.0 10*3/uL 0.0-0.1 Comprehensive metabolic panel - 08/14/18 08:40 Serum or plasma sodium measurement (moles/volume) 137 mmol/L 135-145 Serum or plasma potassium measurement (moles/volume) 3.7 mmol/L 3.6-5.0 Serum or plasma chloride measurement (moles/volume) 106 mmol/L 98-107 Carbon dioxide 20 mmol/L 21-32 Serum or plasma anion gap determination (moles/volume) 11 mmol/L 5-14 Serum or plasma urea nitrogen measurement (mass/volume) 7 mg/dL 7-18 Serum or plasma creatinine measurement (mass/volume) 0.66 mg/dL 0.60-1.30 Serum or plasma urea nitrogen/creatinine mass ratio 11 NRG Serum or plasma creatinine measurement with calculation of estimated glomerular filtration rate > NRG Serum or plasma glucose measurement (mass/volume) 93 mg/dL 70-105 Serum or plasma calcium measurement (mass/volume) 9.7 mg/dL 8.5-10.1 Serum or plasma total bilirubin measurement (mass/volume) 0.3 mg/dL 0.1-1.0 Serum or plasma alkaline phosphatase measurement (enzymatic activity/volume) 46 U/L 40-136 Serum or plasma aspartate aminotransferase measurement (enzymatic activity/volume) 13 U/L 5-34 Serum or plasma alanine aminotransferase measurement (enzymatic activity/volume) 11 U/L 0-55 Serum or plasma protein measurement (mass/volume) 7.1 g/dL 6.4-8.2 Serum or plasma albumin measurement (mass/volume) 4.4 g/dL 3.2-4.5 CALCIUM CORRECTED 9.4 mg/dL 8.5-10.1 Serum or plasma choriogonadotropin measurement (units/volume) - 08/14/18 08:40 Serum or plasma choriogonadotropin measurement (units/volume) 882231 m[iU]/mL <5 Encounters ACCT No. Visit Date/Time Discharge Status Pt. Type Provider Facility Loc./Unit Complaint [id number] 08/14/2018 07:56:00 08/14/2018 10:25:00 DIS Outpatient MICK GERONIMO, JESSICA Spence [facility] ER WEAKNESS;NAUSEA [id number] 07/16/2018 13:01:00 07/16/2018 15:19:00 DIS Emergency NAINA WOLF MD [facility] ER WEAKNESS [id number] 08/04/2018 11:03:00 Document Registration
[2018-09-12 09:40] VITALS: BP_SYST 118; BP_SYST 119; BP_SYST 122; BP_DIAS 68; BP_DIAS 72; BP_DIAS 73
[2018-09-12 09:40] LABS: BILIRUBIN,URINE NEGATIVE (NEGATIVE); CLARITY,URINE SLIGHTLY CLOUDY; COLOR,URINE YELLOW; GLUCOSE, URINE (UA) NEGATIVE (NEGATIVE); KETONES,URINE NEGATIVE (NEGATIVE); LEUKOCYTE ESTERASE ,URINE 1+ (NEGATIVE); NITRITE,URINE NEGATIVE (NEGATIVE); PH,URINE 7 (5-9); PROTEIN,URINE NEGATIVE (NEGATIVE); UROBILINOGEN,URINE NORMAL (NORMAL)
[2018-09-12 09:43] LABS: BASOPHILS % (AUTO) 0 % (0-10); EOSINOPHILS % (AUTO) 1 % (0-10); HEMATOCRIT 34 % (35-52); HEMOGLOBIN 12.4 G/DL (11.5-16.0); LYMPHOCYTES # (AUTO) 1.2 X 10^3 (1.0-4.0); LYMPHOCYTES % (AUTO) 21 % (12-44); MEAN CORPUSCULAR HEMOGLOBIN 30 PG (25-34); MEAN CORPUSCULAR HGB CONC 36 G/DL (32-36); MEAN CORPUSCULAR VOLUME 83 FL (80-99); MEAN PLATELET VOLUME 9.3 FL (7.4-10.4); MONOCYTES # (AUTO) 0.4 X 10^3 (0.0-1.0); MONOCYTES % (AUTO) 8 % (0-12); NEUTROPHILS # (AUTO) 3.9 X 10^3 (1.8-7.8); NEUTROPHILS % (AUTO) 70 % (42-75); PLATELET COUNT 230 10^3/uL (130-400); RED CELL DISTRIBUTION WIDTH 12.8 % (10.0-14.5); WHITE BLOOD COUNT 5.5 10^3/uL (4.3-11.0)
[2018-09-12 09:52] LABS: BACTERIA,URINE FEW /HPF
[2018-09-12 09:56] LABS: INR 1.1 (0.8-1.4); PROTHROMBIN TIME PATIENT 14.4 SEC (12.2-14.7)
[2018-09-12 10:00] LABS: ALANINE AMINOTRANSFERASE 8 U/L (0-55); ALBUMIN 4.2 GM/DL (3.2-4.5); ALKALINE PHOSPHATASE 44 U/L (40-136); BILIRUBIN,TOTAL 0.3 MG/DL (0.1-1.0); BUN/CREATININE RATIO 11; CALCIUM 9.2 MG/DL (8.5-10.1); CARBON DIOXIDE 23 MMOL/L (21-32); CHLORIDE 104 MMOL/L (98-107); CREATININE SERUM 0.65 MG/DL (0.60-1.30); GFR ESTIMATED > 60; GLUCOSE 75 MG/DL (70-105); POTASSIUM 3.7 MMOL/L (3.6-5.0); SODIUM 133 MMOL/L (135-145); TOTAL PROTEIN 7.1 GM/DL (6.4-8.2)
== END 2018-09-12 11:44 | disposition home or self-care (01) ==
LOC: EDUNIT# 09:04 → ER 09:05
DX: O26.891 Other specified pregnancy related conditions, first trimester (principal); R07.81 Pleurodynia; Z3A.13 13 weeks gestation of pregnancy; Z87.891 Personal history of nicotine dependence; Z98.890 Other specified postprocedural states
CPT/HCPCS: 36415; 80053; 81000; 85025; 85610; 85730; 86141

== ENCOUNTER → 2018-10-29 | Outpatient (CLI) | payer MEDICAID ==
--- NOTE | 2018-10-29 18:20 | Diagnostic Imaging Report ---
INDICATION: Size and dates. TECHNIQUE: Multiple real-time grayscale images were obtained over the gravid uterus. COMPARISON: None. FINDINGS: Ny intrauterine gestation has measurements correlating with an age 19 weeks 2 days, sonographic date of confinement 03/23/2019. Heart rate regular 160 beats per minute. Estimated weight based upon clinical age is at the 23rd percentile. Cervix is 3.1 cm. No pathological finding at the anatomical survey was revealed however kidneys were suboptimally visualized. IMPRESSION: 1. Cephalic position ny viable IUP measuring 19 weeks 1 day with anterior placenta. No abruption or previa. No pathological finding at the anatomical survey but we acknowledge suboptimal visualization of the kidneys. 2. Cervix nondilated measured 3.1 cm. Biometrical measurements are as follows: Biparietal 4.27 cm, age 19 weeks 0 days. Head circumference 16.51 cm, age 19 weeks 2 days. Abdominal circumference 13.72 cm, age 19 weeks 2 days. Femur length 3.06 cm, age 19 weeks 4 days. Sonographic estimate age: 19 weeks 2 days. Sonographic estimated date of delivery: 03/23/2019. Estimated Weight: 284 gm (+/- 41 gm). LMP percentile: 23%. heart rate: 160 beats per minute. number: 1 of 1. Dictated by: Dictated on workstation # [id number]
== END ==
LOC: RAD 17:17
PROVIDERS: ATTEND Obstetrics & Gynecology
DX: Z34.92 Encounter for supervision of normal pregnancy, unspecified, second trimester (principal); Z3A.19 19 weeks gestation of pregnancy
CPT/HCPCS: 76805

== ENCOUNTER 2018-11-06 18:25 | Emergency (ER) | payer OTHER, MEDICAID ==
[~2018-11-06] VITALS: Ht 152.4 cm; Wt 52.2 kg
[2018-11-06] MEDS ORDERED: ACETAMINOPHEN 500 MG TAB (TYLENOL) PO ONE (19:00)
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
[2018-11-06 19:07] LABS: BASOPHILS % (AUTO) 0 % (0-10); EOSINOPHILS # (AUTO) 0.1 10^3/uL (0.0-0.3); EOSINOPHILS % (AUTO) 1 % (0-10); HEMATOCRIT 32 % (35-52); HEMOGLOBIN 11.4 G/DL (11.5-16.0); LYMPHOCYTES # (AUTO) 1.7 X 10^3 (1.0-4.0); LYMPHOCYTES % (AUTO) 16 % (12-44); MEAN CORPUSCULAR HEMOGLOBIN 31 PG (25-34); MEAN CORPUSCULAR HGB CONC 36 G/DL (32-36); MEAN CORPUSCULAR VOLUME 86 FL (80-99); MEAN PLATELET VOLUME 9.3 FL (7.4-10.4); MONOCYTES # (AUTO) 0.9 X 10^3 (0.0-1.0); MONOCYTES % (AUTO) 8 % (0-12); NEUTROPHILS % (AUTO) 75 % (42-75); PLATELET COUNT 250 10^3/uL (130-400); RED CELL DISTRIBUTION WIDTH 12.8 % (10.0-14.5); WHITE BLOOD COUNT 10.7 10^3/uL (4.3-11.0)
[2018-11-06 19:13] LABS: BILIRUBIN,URINE NEGATIVE (NEGATIVE); CLARITY,URINE CLEAR; COLOR,URINE YELLOW; GLUCOSE, URINE (UA) NEGATIVE (NEGATIVE); KETONES,URINE NEGATIVE (NEGATIVE); LEUKOCYTE ESTERASE ,URINE 3+ (NEGATIVE); NITRITE,URINE NEGATIVE (NEGATIVE); PH,URINE 6 (5-9); PROTEIN,URINE 1+ (NEGATIVE); UROBILINOGEN,URINE NORMAL (NORMAL)
[2018-11-06 19:26] LABS: AMORPHOUS SEDIMENT,UR FEW AMOR URATES /LPF; BACTERIA,URINE LARGE /HPF; SQUAMOUS EPITHELIAL CELL,UR 25-50 /HPF
[2018-11-06 19:27] LABS: ALANINE AMINOTRANSFERASE 17 U/L (0-55); ALBUMIN 3.9 GM/DL (3.2-4.5); ALKALINE PHOSPHATASE 49 U/L (40-136); BILIRUBIN,TOTAL 0.2 MG/DL (0.1-1.0); BUN/CREATININE RATIO 11; CALCIUM 8.9 MG/DL (8.5-10.1); CARBON DIOXIDE 22 MMOL/L (21-32); CHLORIDE 104 MMOL/L (98-107); CREATININE SERUM 0.66 MG/DL (0.60-1.30); GFR ESTIMATED > 60; GLUCOSE 95 MG/DL (70-105); POTASSIUM 3.4 MMOL/L (3.6-5.0); SODIUM 136 MMOL/L (135-145); TOTAL PROTEIN 6.9 GM/DL (6.4-8.2)
[2018-11-06 21:18] VITALS: BP 112/73
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
[2018-11-07] MEDS ORDERED: CYCL10TA9 PO (09:15)
[2018-11-07] MEDS ORDERED: ACET-77 PO (09:15)
== END 2018-11-06 21:25 | disposition home or self-care (01) ==
LOC: EDUNIT# 18:25 → ER 18:26
DX: O26.892 Other specified pregnancy related conditions, second trimester (principal); M54.5 Low back pain; R10.31 Right lower quadrant pain; R40.2142 Coma scale, eyes open, spontaneous, at arrival to emergency department; R40.2252 Coma scale, best verbal response, oriented, at arrival to emergency department; R40.2362 Coma scale, best motor response, obeys commands, at arrival to emergency department; Z87.891 Personal history of nicotine dependence; V59.59XA Passenger in pick-up truck or van injured in collision with other motor vehicles in traffic accident, initial encounter; Z3A.21 21 weeks gestation of pregnancy
CPT/HCPCS: 36415; 80053; 81000; 85025; 86850; 86900; 86901; 87088

== ENCOUNTER 2018-11-07 08:59 | Outpatient (CLI) | payer OTHER, MEDICAID ==
[~2018-11-07] VITALS: Ht 152.4 cm; Wt 52.2 kg
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
--- NOTE | 2018-11-07 08:44 | NUR ---
[id number] FHT's 130's-160's. abdomen remains soft as RN holds FHR monitor. patient talking with RN, texting on phone. reports pain right spine from neck to low back, and left hip. one small bruise reported by patient noted by RN on right groin. no other bruising noted on abdomen denies other bruising. waiting for ultrasound results. 0905 tylenol 1000mg given as ordered PO. 0908 warm k pad to right spine. continue to monitor.
--- NOTE | 2018-11-07 08:55 | NUR ---
Dr. Gusman at bedside reviewing poc. new orders received.
[2018-11-07 09:00] VITALS: BP 121/70
[2018-11-07] MEDS ORDERED: ACETAMINOPHEN 500 MG TAB (TYLENOL) ONE (09:01)
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
[2018-11-07] MEDS ORDERED: ACETAMINOPHEN 500 MG TAB (TYLENOL) PO NR (09:15)
[2018-11-07] MEDS ORDERED: CYCL10TA9 PO (09:15)
[2018-11-07] MEDS ORDERED: ACET-77 PO (09:15)
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
--- NOTE | 2018-11-07 10:45 | NUR ---
TO ROOM TO CHECK ON PT. NO S/S OF DISTRESS NOTED, DENIES NEEDS OR CONCERNS AT THIS TIME.
--- NOTE | 2018-11-07 12:21 | NUR ---
DR BAUER CALLED TO UNIT FOR UPDATE, STILL AWAITING US REPORT. WILL UPDATE WHEN REPORT READY.
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
--- NOTE | 2018-11-07 12:39 | NUR ---
US REPORT AVAILABLE, CALLED TO DR. BAUER. ORDERS TO D/C PT TO HOME.
--- NOTE | 2018-11-07 12:56 | NUR ---
DISCHARGE INSTRUCTIONS EXPLAINED TO PT WITH COPY PROVIDED TO PT. PT VERBALIZES UNDERSTANDING OF INSTRUCTIONS, SIGNS TO VERIFY. DENIES QUESTIONS OR CONCERNS AT THIS TIME.
--- NOTE | 2018-11-19 23:09 | Physician Query-Final Dx ---
Final Diagnosis Give Final Diagnosis Please give Final Diagnosis Please give Final Diagnosis and add weeks of gestation EDGAR SCHMIDT Nov 19, 2018 23:09
== END 2018-11-07 12:56 | disposition home or self-care (01) ==
LOC: WSo 08:59 → LDRP 08:59 → WS 12:27 → LDRP 12:27 → WSo 12:56
PROVIDERS: ATTEND Obstetrics & Gynecology
DX: O9A.212 Injury, poisoning and certain other consequences of external causes complicating pregnancy, second trimester (principal); M54.5 Low back pain; R10.9 Unspecified abdominal pain; V49.9XXA Car occupant (driver) (passenger) injured in unspecified traffic accident, initial encounter; Z3A.21 21 weeks gestation of pregnancy
CPT/HCPCS: 76815; 99213

== ENCOUNTER 2019-01-20 18:19 | Outpatient (CLI) | payer MEDICAID ==
[~2019-01-20] VITALS: Ht 152.4 cm; Wt 57.7 kg
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
[~2019-01-20 18:19] MED LIST changes: +ACET-77 PO; +CYCL10TA9 PO
[2019-01-20] MEDS ORDERED: PREN-37 PO (18:31)
[2019-01-20 18:34] VITALS: BP 112/59
[2019-01-20 18:35] LABS: BILIRUBIN,URINE NEGATIVE (NEGATIVE); CLARITY,URINE CLEAR; COLOR,URINE YELLOW; GLUCOSE, URINE (UA) NEGATIVE (NEGATIVE); KETONES,URINE NEGATIVE (NEGATIVE); LEUKOCYTE ESTERASE ,URINE 3+ (NEGATIVE); NITRITE,URINE NEGATIVE (NEGATIVE); PH,URINE 6 (5-9); PROTEIN,URINE 2+ (NEGATIVE)
[2019-01-20 18:43] LABS: BACTERIA,URINE MODERATE /HPF
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
[2019-01-20] MEDS ORDERED: CEPHALEXIN 250 MG (KEFLEX) CAP PO NR (19:00)
[2019-01-20 19:52] VITALS: BP 121/77
[2019-01-20] MEDS ORDERED: CEPH250C PO (20:31)
--- NOTE | 2019-01-20 20:35 | NUR ---
D/C instructions given & explained, including Keflex Rx, pt. verbalized understanding & signed. Copy of D/C instructions to pt. Encouraged & stressed importance of pt. going to next sched appt, as she states she missed her Silvina shot last week, pt. again verbalized understanding. Pt. left [facility] ambulatory on own, to home via private vehicle.
--- NOTE | 2019-01-21 09:03 | Physician Query-Final Dx ---
CONSTANTIN BRICEÑO 01/21/19 0903: Clinic Account Progress/Dx Physician Query: Please give diagnosis Please include # weeks gestation Date of Service Jan 20, 2019 at 18:19 DONI BAUER DO 01/22/19 1435: Clinic Account Progress/Dx DIAGNOSIS: Diagnosis 32 week gestation history of delivery UTI CONSTANTIN BRICEÑO Jan 21, 2019 09:03 DONI BAUER DO Jan 22, 2019 14:35
== END 2019-01-20 20:35 | disposition home or self-care (01) ==
LOC: LDRP 18:19 → WSo 18:19
PROVIDERS: ATTEND Obstetrics & Gynecology
DX: O23.43 Unspecified infection of urinary tract in pregnancy, third trimester (principal); Z3A.32 32 weeks gestation of pregnancy; Z87.51 Personal history of pre-term labor
CPT/HCPCS: 81000; 87077; 87088; 99214

== ENCOUNTER 2019-01-22 18:03 | Outpatient (CLI) | payer MEDICAID ==
[~2019-01-22] VITALS: Ht 152.4 cm; Wt 58.5 kg
[~2019-01-22 18:03] MED LIST changes: +CEPH250C PO; +PREN-37 PO
--- NOTE | 2019-01-22 18:03 | NUR ---
MOUNA SCHULZ presented to unit via ambulatio with c/o pressure & sharp stabbing abd pain x2 days. Pt. weighed, gowned, voided, and to bed. EFHM and TOCO applied, VS taken. Pt. oriented to bed controls, call light, TV, heat, and A/C controls.
[2019-01-22 18:18] VITALS: BP 127/80
--- NOTE | 2019-01-22 18:43 | NUR ---
SVe 3cm, 50%, anterior, and soft. pt reports hx of labor with previous . son delivered @ approx 34-35 weeks. last Marlyn injection today in office. reports last seen on [facility] unit on Saturday with poss ROM. dx with UTI. Keflex was called into pharmacy, pt denies taking abx. picked up today.
--- NOTE | 2019-01-22 18:47 | NUR ---
was called r/t pt's admission c/o's. reviewed monitor tracing, hx and SVE. new orders received.
[2019-01-22 18:50] LABS: BILIRUBIN,URINE NEGATIVE (NEGATIVE); CLARITY,URINE CLEAR; COLOR,URINE YELLOW; GLUCOSE, URINE (UA) 2+ (NEGATIVE); KETONES,URINE NEGATIVE (NEGATIVE); LEUKOCYTE ESTERASE ,URINE 2+ (NEGATIVE); NITRITE,URINE NEGATIVE (NEGATIVE); PH,URINE 6.5 (5-9); PROTEIN,URINE NEGATIVE (NEGATIVE)
[2019-01-22] MEDS ORDERED: NS IV 1000 ML 1,000 ML IV SCH (19:00)
[2019-01-22] MEDS ORDERED: cefTRIAXone FOR IV USE 1,000 MG in WATER (STERILE) FOR INJECTION 10 ML IV NR (19:00)
[2019-01-22 19:02] LABS: BACTERIA,URINE TRACE /HPF
--- NOTE | 2019-01-22 19:19 | NUR ---
report given to JOHANA Romo.
[2019-01-22 19:25] LABS: HEMOGLOBIN 10.8 G/DL (11.5-16.0); MEAN PLATELET VOLUME 9.9 FL (7.4-10.4); RED CELL DISTRIBUTION WIDTH 11.8 % (10.0-14.5); WHITE BLOOD COUNT 11.4 10^3/uL (4.3-11.0)
--- NOTE | 2019-01-22 19:54 | NUR ---
This RN called Dr Noland to notify of all lab results on CBC and UA. Notified of contraction pattern at this time. New orders to recheck cervix after IV is complete. If no cervical change from initial check, patient may be discharged home. If cervical change present call Dr for further orders.
[2019-01-22 20:25] VITALS: BP 117/56
--- NOTE | 2019-01-22 20:55 | NUR ---
This RN notified Dr carter of no change in sve from initial check on admit. OK for discharge received.
--- NOTE | 2019-01-22 21:00 | NUR ---
Discharge paper given and reviewed with patient. IV removed.
--- NOTE | 2019-01-22 21:05 | NUR ---
Patient ambulating off of unit at this time to private vehicle.
--- NOTE | 2019-01-23 09:48 | Physician Query-Final Dx ---
CONSTANTIN BRICEÑO 01/23/19 0948: Clinic Account Progress/Dx Physician Query: Please give diagnosis Please give # weeks gestation Date of Service Jan 22, 2019 at 18:03 RICHARD BROWNE DO 01/25/19 1700: Clinic Account Progress/Dx DIAGNOSIS: Diagnosis 31.6 week iup Uterine cramping CONSTANTIN BRICEÑO Jan 23, 2019 09:48 RICHARD BROWNE DO Jan 25, 2019 17:00
== END 2019-01-22 21:05 | disposition home or self-care (01) ==
LOC: WSo 18:03 → LDRP 18:03 → WSo 21:05
PROVIDERS: ATTEND Obstetrics & Gynecology
DX: O47.03 False labor before 37 completed weeks of gestation, third trimester (principal); Z3A.31 31 weeks gestation of pregnancy
CPT/HCPCS: 36415; 81000; 85027; 96361; 96374; 99213

== ENCOUNTER 2019-02-25 14:01 | Outpatient (CLI) | payer MEDICAID ==
[~2019-02-25] VITALS: Ht 152.4 cm; Wt 58.7 kg
--- NOTE | 2019-02-25 13:45 | NUR ---
Arrvied to unit ambulates self with c/o "lower abd cramping, constant lower back pain." denies vaginal bleeding or leaking fluid. wt obtained and to room 315. Gowned and urine sample obtained. To bed and monitors on. Oriented to room, call light and surroundings. plan of care reviewed with pt.
[2019-02-25 14:13] VITALS: BP 128/71
--- NOTE | 2019-02-25 14:25 | NUR ---
ice water to bedside for patient.
--- NOTE | 2019-02-25 14:29 | NUR ---
Dr Carrizales called and notitifed of sve, 1 contraction noted at 40sec duration, fhr reactive. Will monitor for 1 hour and recheck cervix. plan of care reviewed with pt.
--- NOTE | 2019-02-25 15:04 | NUR ---
pt up to get dressed after sve.
--- NOTE | 2019-02-25 15:15 | NUR ---
Discharge instructions explained, signed and copy to patient. pt verbalized understanding of instructions. Discharged to home at this time. Ambulates self to private vehicle with belongings in hand.
--- NOTE | 2019-03-02 08:18 | Physician Query-Final Dx ---
Clinic Account Progress/Dx Physician Query: Please give diagnosis Please include # weeks gestation Date of Service Feb 25, 2019 at 14:01 CONSTANTIN BRICEÑO Mar 02, 2019 08:18 POS
== END 2019-02-25 15:15 | disposition home or self-care (01) ==
LOC: LDRP 14:01 → WSo 14:01
PROVIDERS: ATTEND Obstetrics & Gynecology
DX: O26.893 Other specified pregnancy related conditions, third trimester (principal); R10.9 Unspecified abdominal pain; M54.9 Dorsalgia, unspecified; Z3A.36 36 weeks gestation of pregnancy
CPT/HCPCS: 99213

== ENCOUNTER → 2019-03-09 | Outpatient (CLI) | payer MEDICAID ==
[~2019-03-09] MED LIST changes: -ACET-77 PO; +ACET-78 PO; +ACHD5005 PO; +Benzocaine/Menthol TP; +DOCU100C37 PO; +IBUP-844 PO
--- NOTE | 2019-03-09 14:05 | Diagnostic Imaging Report ---
PROCEDURE: US OB SINGLE FETUS <14 WKS. TECHNIQUE: Multiple Real-time grayscale images were obtained over the gravid uterus in various projections. INDICATION: Size and dates. FINDINGS: There is a single living intrauterine in cephalic presentation. The placenta is anterior. There is no previa. The amniotic fluid index is 14.9. The heart rate is 153 BPM and regular. The maternal adnexa are unremarkable. IMPRESSION: Single living intrauterine with a sonographically estimated gestational age of 36 weeks 3 days and an estimated date of confinement of 04/03/2019. Normal heart tones of 153 BPM. Dictated by: Dictated on workstation # [id number]
== END ==
LOC: RAD 11:56
PROVIDERS: ATTEND Obstetrics & Gynecology
DX: O26.843 Uterine size-date discrepancy, third trimester (principal); O09.213 Supervision of pregnancy with history of pre-term labor, third trimester; Z3A.36 36 weeks gestation of pregnancy
CPT/HCPCS: 76801

== ENCOUNTER 2019-03-12 03:06 | Inpatient (IN) | payer MEDICAID ==
[~2019-03-12] VITALS: Ht 152.4 cm; Wt 60.0 kg
[2019-03-12] VITALS (46 sets, daily range): BP systolic 104–155; BP diastolic 54–87
[~2019-03-12 03:06] MED LIST changes: +ACET-77 PO; -ACET-78 PO; -ACHD5005 PO; -Benzocaine/Menthol TP; -DOCU100C37 PO; -IBUP-844 PO
[2019-03-12 04:18] LABS: BILIRUBIN,URINE NEGATIVE (NEGATIVE); CLARITY,URINE CLEAR; COLOR,URINE YELLOW; GLUCOSE, URINE (UA) NEGATIVE (NEGATIVE); KETONES,URINE NEGATIVE (NEGATIVE); LEUKOCYTE ESTERASE ,URINE 1+ (NEGATIVE); NITRITE,URINE NEGATIVE (NEGATIVE); PROTEIN,URINE NEGATIVE (NEGATIVE)
[2019-03-12 04:24] LABS: BACTERIA,URINE FEW /HPF
[2019-03-12] MEDS: D5 LR IV SOLUTION 1,000 ML IV SCH ×2 (06:34→11:30)
[2019-03-12] MEDS ORDERED: OXYTOCIN/NORMAL SALINE 500 ML IV SCH ×2 (08:14→10:31)
--- NOTE | 2019-03-12 08:20 | History & Physical-OB ---
OB - Chief Complaint & HPI Date/Time Date of Admission: Date of Admission: 03/12/2020 Date seen by a Provider: Mar 12, 2019 Time Seen by a Provider: 08:17 Chief Complaint/History OB-Reason for Admission/Chief: Onset of Labor Hx : 2 Hx Para: 1 Gestational Age in Weeks: 38 Gestational Age in Days: 3 Admission Nurse Assessment Rev: Yes History of Labs A neg Antibody neg RI RPR NR HBsAg NR HCsAg NR HIV NR GC neg GBS neg Allergies and Home Medications Allergies Coded Allergies: No Known Drug Allergies (Unverified , 07/16/18) Home Medications Vit/Iron Fumarate/FA 1 Each Tablet, 1 EACH PO DAILY, (Reported) Patient Home Medication List Home Medication List Reviewed: Yes OB - History Hx of Present Care: Yes Ultrasounds: Normal mid trimester US Obstetrical Complications: None Medical Complications: None Obstetrical History Hx : 2 Hx Para: 1 Patient Past Medical History n/a Social History/Family History Recent Infectious Disease Expo: No Alcohol Use: Denies Use Recreational Drug Use: No Immunizations Date of Influenza Vaccine: Jan 08, 2019 OB - Admission Exam Physical Exam Vitals: Vital Signs 03/12/19 03/12/19 04:00 06:50 Temp 36.6 Pulse 96 Resp 16 B/P (MAP) 126/71 (89) Pulse Ox 98 O2 Delivery Room Air HEENT: NCAT Heart: Rhythm Normal Lungs: Clear Abdomen: Gravid Extremities: Normal Reflexes: Normal Cervical Dilatation: 5cm Effacement: 75% Station: -1 Membranes: Intact Heart Rate: 130's Accelerations: Accelerations Present Decelerations: No Decelerations Short Term Variability: Present Set Staff Fitter Variability: Average (6-25) Contractions on Admission: 6-10 Minutes Apart Labs Laboratory Tests Test 03/12/19 03:20 Range/Units Urine Color YELLOW Urine Clarity CLEAR Urine pH 6.0 5-9 Urine Specific [place] 1.020 1.016-1.022 Urine Protein NEGATIVE NEGATIVE Urine Glucose (UA) NEGATIVE NEGATIVE Urine Ketones NEGATIVE NEGATIVE Urine Nitrite NEGATIVE NEGATIVE Urine Bilirubin NEGATIVE NEGATIVE Urine Urobilinogen 0.2 < = 1.0 MG/DL Urine Leukocyte Esterase 1+ H NEGATIVE Urine RBC (Auto) NEGATIVE NEGATIVE Urine RBC NONE /HPF Urine WBC 5-10 H /HPF Urine Squamous Epithelial Cells 5-10 /HPF Urine Crystals NONE /LPF Urine Bacteria FEW H /HPF Urine Casts NONE /LPF Urine Mucus SMALL H /LPF Urine Culture Indicated YES OB - Assessment/Plan/Diagnosis Assessment Assessment: active labor Admission Dx 18 yo @ 38.6 Active labor GBS neg Admission Status: Inpatient Order (span 2 midnights) Reason for Inpatient Admission: Active labor at term Plan Plan: Other (AROM, and epidural if desired) RICHARD BROWNE DO Mar 12, 2019 08:20 POS
[2019-03-12] MEDS ORDERED: D5 LR IV SOLUTION 1,000 ML IV SCH (08:22)
[2019-03-12] MEDS ORDERED: MINERAL OIL CONCENTRATE 99.9% 15 ML UDC TOP PRN (08:30)
[2019-03-12 08:40] LABS: BASOPHILS % (AUTO) 0 % (0-10); EOSINOPHILS # (AUTO) 0.1 10^3/uL (0.0-0.3); EOSINOPHILS % (AUTO) 1 % (0-10); HEMATOCRIT 34 % (35-52); HEMOGLOBIN 11.9 G/DL (11.5-16.0); LYMPHOCYTES # (AUTO) 1.9 X 10^3 (1.0-4.0); LYMPHOCYTES % (AUTO) 15 % (12-44); MEAN CORPUSCULAR HEMOGLOBIN 30 PG (25-34); MEAN CORPUSCULAR HGB CONC 35 G/DL (32-36); MEAN CORPUSCULAR VOLUME 87 FL (80-99); MEAN PLATELET VOLUME 10.6 FL (7.4-10.4); MONOCYTES # (AUTO) 0.7 X 10^3 (0.0-1.0); MONOCYTES % (AUTO) 5 % (0-12); NEUTROPHILS # (AUTO) 10.2 X 10^3 (1.8-7.8); NEUTROPHILS % (AUTO) 80 % (42-75); PLATELET COUNT 215 10^3/uL (130-400); RED CELL DISTRIBUTION WIDTH 12.3 % (10.0-14.5); WHITE BLOOD COUNT 12.9 10^3/uL (4.3-11.0)
[2019-03-12] MEDS ORDERED: SUFENTA 0.6MCG/ML BUPIVA 0.125 100 ML ONE ×2 (08:55→08:57)
[2019-03-12] MEDS ORDERED: BUPIVACAINE 0.25% 30 ML (SENSORCAINE) VIAL ONE (09:34)
[2019-03-12] MEDS ORDERED: fentaNYL INJECTION 100 MCG/2 ML AMP ONE (09:34)
[2019-03-12] MEDS ORDERED: CATHETER FLUSH 10 ML SYR IV PRN (11:00)
[2019-03-12] MEDS ORDERED: EPIDURAL (SUFENTA 0.6MCG/ML BUPIVA 0.125%) 100 ML BAG EPI SCH (11:00)
[2019-03-12] MEDS ORDERED: NALOXONE 0.4 MG/ML 1 ML (NARCAN) VIAL IV PRN (11:00)
[2019-03-12] MEDS ORDERED: ONDANSETRON 4 MG/2 ML (SDV) Z0FRAN IV PRN (11:00)
[2019-03-12] MEDS ORDERED: diphenhydrAMINE 50 MG/ML INJ (BENADRYL) IV PRN (11:00)
[2019-03-12] MEDS ORDERED: LACTATED RINGERS 1,000 ML IV ONE (11:00)
[2019-03-12] MEDS ORDERED: CATHETER FLUSH 10 ML SYR IV SCH ×3 (14:00→22:00)
--- NOTE | 2019-03-12 14:29 | OB Labor & Delivery Record ---
L&D History Date of Service Date of Service: Mar 12, 2019 History Expected Date of Delivery: Mar 23, 2019 Gestational Age in Weeks: 38 Hx : 2 Hx Para: 1 Complications Events: Routine care Operative Indications (Cesarea: N/A-Vaginal Delivery Intrapartal Events: None L&D Stage1 Stage One Onset of Labor - Date: Mar 12, 2019 Monitors and Tracing Monitor Mode: External Heart Rate: 150 Monitor Accelerations: Uniform Monitor Decelerations: Early Retirement Variability: Average (6-10) Short Term Variability: Present Presentation: Vertex Vital Signs VS - Last 72 Hours, by Label POS 03/12/19 03/12/19 03/12/19 03/12/19 03:25 04:00 05:20 06:50 Temp 36.6 36.6 Pulse 98 98 85 96 Resp 16 16 16 16 B/P (MAP) 109/70 (83) 112/68 (83) 126/71 (89) Pulse Ox 98 98 O2 Delivery Room Air Room Air Room Air Room Air 03/12/19 03/12/19 03/12/19 03/12/19 07:20 07:20 09:37 09:40 Temp 36.7 Pulse 98 98 96 93 Resp 20 20 B/P (MAP) 121/57 (78) 125/87 (100) 138/83 (101) Pulse Ox 98 100 100 O2 Delivery Room Air Room Air Room Air Room Air 03/12/19 03/12/19 03/12/19 03/12/19 09:49 09:57 09:59 10:05 Pulse 111 112 126 126 B/P (MAP) 143/73 (96) 133/86 (102) 155/78 (103) 147/66 (93) Pulse Ox 100 100 100 100 O2 Delivery Room Air Room Air Rupture of Membranes Spontaneous Ruture of Membrane: No Amniotic Membrane Rupture Time: 08:15 Amniotic Membrane Fluid Desc.: Clear Vaginal Bleeding Description: Normal Show Induction/Anesthesia Epidural Cath Placement - Time: 957 Progress/Notes Patient augmented with low dose pitocin and AROM, progressed to complete and +2 station L&D Stage2 Stage Two Stage II Date: Mar 12, 2019 Monitors and Tracing Monitor Mode: External Heart Rate: 150 Monitor Decelerations: Variable Retirement Variability: Average (6-10) Short Term Variability: Present Position: Right Occiput Anterior Presentation: Vertex Cord Descript/Complications Cord Vessel Description: 3 Vessels Delivery Type Infant Delivery Method: Spontaneous Vaginal Anterior Shoulder: Right Episiotomy/Perineal Laceration Laceraction(s)/Extensions: No Condition of Infant Delivery 1 minute Comment: 8 5 minute Comment: 9 Notes live female infant weight 6lbs 1 oz Condition of Condition of Infant: Living Exam: No Observed Abnormalities Resuscitation Resuscitation: N/A - Spontaneous Resp L&D Stage3 Stage Three Stage III Date: Mar 12, 2019 Pictocin Pitocin Administration Comment: 30 mu wide open at delivery of placnta Placenta Delivery Placenta Delivery: Spontaneous Delivery Summary Summary Estimated blood loss (mL): 250 Attending at delivery: Richard Browne DO Condition of Delivery Examined: Cervix Examined, Uterus Explored Post Hemorrhage: No Condition of Mother stable Condition of Infant (s) stable RICHARD BROWNE DO Mar 12, 2019 14:29 POS
[2019-03-12] MEDS ORDERED: MEASLES,MUMPS,RUBELLA 1 EA INJ SQ ONE (14:30)
[2019-03-12] MEDS ORDERED: BENZOCAINE/MENTHOL (DERMOPLAST) 56 ML CAN TP PRN (14:30)
[2019-03-12] MEDS ORDERED: HYDROcodone/APAP 5 MG/325 MG (LORTAB) TAB PO PRN (14:30)
[2019-03-12] MEDS ORDERED: TETANUS,DIPTH,PERTUSS P/F (BOOSTRIX) 0.5 ML VIAL IM ONE (14:30)
[2019-03-12] MEDS: WITCH HAZEL(TUCKS) 40 EA JAR TOP PRN (15:48)
[2019-03-12] MEDS: IBUPROFEN 600 MG (MOTRIN) TAB PO SCH ×2 (15:49→21:06)
[2019-03-12] MEDS: OXYTOCIN/NORMAL SALINE 500 ML IV SCH ×2 (18:51→18:52)
[2019-03-12] MEDS: DOCUSATE SODIUM 100 MG (COLACE) CAP PO SCH (21:06)
[2019-03-13 03:15] VITALS: BP 113/61
[2019-03-13] MEDS: IBUPROFEN 600 MG (MOTRIN) TAB PO SCH ×2 (03:17→09:50)
[2019-03-13] MEDS ORDERED: Benzocaine/Menthol TP (06:59)
[2019-03-13] MEDS ORDERED: ACHD5005 PO (06:59)
[2019-03-13] MEDS ORDERED: DOCU100C37 PO (06:59)
[2019-03-13] MEDS ORDERED: IBUP-844 PO (06:59)
--- NOTE | 2019-03-13 07:00 | Discharge Inst-Women's Service ---
Discharge Inst-Women's Serv Depart Medication/Instructions New, Converted or Re-Newed RX: RX on Chart Final Diagnosis PPD 1 NVD Problems Reviewed?: Yes Consults/Follow Up Additional Follow Up: Yes Orders/Referrals Dr. Gusman in 6 weeks Activity Activity: Activity as Tolerated Driving Instructions: No Driving for 1 Week NO SMOKING: NO SMOKING Nothing Inside Vagina: No Douching, No Valinda, No Tampons Diet Discharge Diet: No Restrictions Symptoms to Report to : Bleeding Excessive, Pain Increased, Fever Over 101 Degrees F, Vaginal Bleeding Increase, Questions/Concerns For Any Problems or Questions: Contact Your Physician RICHARD BROWNE DO Mar 13, 2019 07:00 POS
--- NOTE | 2019-03-13 07:13 | Postpartum Progress Note ---
Note Note Day # 1 Subjective: Patient is without complaints. Ambulating, voiding. Tolerating a regular diet without nausea or vomiting. Normal lochia. Pain is well controlled with oral pain medications. Objective: Physical Exam: General - Alert and oriented, no apparent distress Abdomen - Soft, appropriately tender to palpation, non-distended, fundus firm at umbilicus Extremities - no edema, negative Elmer's bilaterally Assessment: PPD 1 NVD Labs pending Plan: Routine care. Encourage breast feeding. Encourage ambulation. Ferrous sulfate supplementation. Plan for discharge today Vitals - Labs Vital Signs - I&O Vital Signs Date Time Temp Pulse Resp B/P (MAP) Pulse Ox O2 Delivery O2 Flow Rate FiO2 03/13/19 03:15 36.3 72 18 113/61 (78) 99 Room Air 03/12/19 23:23 36.4 72 18 119/62 (81) 98 Room Air 03/12/19 19:34 36.6 83 18 114/54 (74) 97 Room Air 03/12/19 16:45 37.1 75 20 104/55 (71) 98 Room Air 03/12/19 14:45 94 121/60 (80) 03/12/19 14:30 78 118/59 (78) 03/12/19 14:15 83 113/55 (74) 03/12/19 14:00 98 115/82 (93) 03/12/19 13:45 88 122/57 (78) Room Air 03/12/19 13:15 82 117/63 (81) Room Air 03/12/19 13:00 72 117/72 (87) Room Air 03/12/19 12:45 83 129/59 (82) Room Air 03/12/19 12:30 85 119/72 (88) Room Air 03/12/19 12:15 94 115/73 (87) Room Air 03/12/19 12:00 83 16 114/58 (76) Room Air 03/12/19 11:45 73 107/58 (74) 03/12/19 11:30 87 117/76 (90) 100 Room Air 03/12/19 11:15 91 120/70 (87) 100 03/12/19 11:00 91 120/70 (87) 100 03/12/19 10:50 85 118/66 (83) 100 03/12/19 10:46 82 124/70 (88) 99 03/12/19 10:44 90 125/72 (89) 99 03/12/19 10:42 81 16 121/64 (83) 100 03/12/19 10:40 36.4 90 113/59 (77) 03/12/19 10:36 95 120/68 (85) 98 03/12/19 10:33 88 116/62 (80) 03/12/19 10:30 86 118/58 (78) 99 03/12/19 10:27 88 121/70 (87) 99 03/12/19 10:24 94 124/70 (88) 03/12/19 10:20 93 119/58 (78) 99 03/12/19 10:18 86 120/59 (79) 03/12/19 10:15 101 116/57 (76) 03/12/19 10:12 96 123/60 (81) 98 03/12/19 10:10 101 16 116/57 (76) Room Air 03/12/19 10:05 126 147/66 (93) 100 03/12/19 10:02 103 124/68 (86) 100 Room Air 03/12/19 09:59 126 155/78 (103) 100 03/12/19 09:57 112 133/86 (102) 100 Room Air 03/12/19 09:49 111 143/73 (96) 100 Room Air 03/12/19 09:40 93 138/83 (101) 100 Room Air 03/12/19 09:37 96 20 125/87 (100) 100 Room Air 03/12/19 08:30 Room Air 03/12/19 08:00 36.7 100 121/62 (81) Room Air 03/12/19 07:20 36.7 98 20 98 Room Air 03/12/19 07:20 98 121/57 (78) Room Air I & O 03/13/19 07:00 Intake Total 2000 ml Balance 2000 ml RICHARD BROWNE DO Mar 13, 2019 07:13 POS
[2019-03-13 07:14] LABS: BASOPHILS % (AUTO) 0 % (0-10); EOSINOPHILS # (AUTO) 0.1 10^3/uL (0.0-0.3); EOSINOPHILS % (AUTO) 1 % (0-10); HEMATOCRIT 30 % (35-52); HEMOGLOBIN 10.7 G/DL (11.5-16.0); LYMPHOCYTES # (AUTO) 2.1 X 10^3 (1.0-4.0); LYMPHOCYTES % (AUTO) 20 % (12-44); MEAN CORPUSCULAR HEMOGLOBIN 30 PG (25-34); MEAN CORPUSCULAR HGB CONC 35 G/DL (32-36); MEAN CORPUSCULAR VOLUME 86 FL (80-99); MEAN PLATELET VOLUME 10.1 FL (7.4-10.4); MONOCYTES % (AUTO) 9 % (0-12); NEUTROPHILS # (AUTO) 7.4 X 10^3 (1.8-7.8); NEUTROPHILS % (AUTO) 70 % (42-75); PLATELET COUNT 199 10^3/uL (130-400); RED CELL DISTRIBUTION WIDTH 12.4 % (10.0-14.5); WHITE BLOOD COUNT 10.5 10^3/uL (4.3-11.0)
[2019-03-13] MEDS: DOCUSATE SODIUM 100 MG (COLACE) CAP PO SCH (08:33)
[2019-03-13 08:38] VITALS: BP 120/72
--- NOTE | 2019-03-13 09:52 | Anesthesia-Regional Post-Op ---
Regional Patient Condition Mental Status: Alert, Oriented x3 Circulation: Same as Pre-Op Headache: Absent Sensation: Full Recovery Motor Block: Absent Post Op Complications Complications None Follow Up Care/Instructions Patient Instructions None needed. Anesthesia/Patient Condition Patient is doing well, no complaints, stable vital signs, no apparent adverse anesthesia problems. No complications reported per nursing. ANISH RAJAN CRNA Mar 13, 2019 09:52 POS
[2019-03-13] MEDS: WITCH HAZEL(TUCKS) 40 EA JAR TOP PRN (10:08)
[2019-03-13 10:41] VITALS: BP 120/72
== END 2019-03-13 16:35 | disposition home or self-care (01) | DRG 807 ==
LOC: LDRP 03:06 → WSo 03:06 → LDRP 08:00
PROVIDERS: ADMIT Obstetrics & Gynecology; ATTEND Obstetrics & Gynecology
PROC: 10E0XZZ Delivery of Products of Conception, External Approach (ICD-10-PCS; principal; 2019-03-12)
DX: O76 Abnormality in fetal heart rate and rhythm complicating labor and delivery (principal); Z37.0 Single live birth; Z3A.38 38 weeks gestation of pregnancy
CPT/HCPCS: 36415; 81000; 83033; 85025; 86850; 86900; 86901; 87088; 99212

== ENCOUNTER → 2019-04-29 | Outpatient (CLI) | payer OTHER, MEDICAID ==
[~2019-04-29] MED LIST changes: -ACET-77 PO; +ACET-78 PO; +ACHD5005 PO; +Benzocaine/Menthol TP; +DOCU100C37 PO; +IBUP-844 PO
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
== END ==
LOC: RAD 14:00
PROVIDERS: ATTEND Family Medicine
DX: M25.551 Pain in right hip (principal); M25.552 Pain in left hip
CPT/HCPCS: 72100; 73523

== ENCOUNTER 2019-06-17 14:00 | Outpatient (RCR) | payer OTHER, MEDICAID | END 2019-08-17 | disposition home or self-care (01) | PROVIDERS: ATTEND Family Medicine | DX: M54.5 Low back pain (principal); M25.552 Pain in left hip ==